=== PATIENT | male | born 1945 | race Caucasian/White ===

== ENCOUNTER 2017-12-12 01:33 | Emergency (ER) | payer MEDICARE, OTHER ==
[~2017-12-12] VITALS: Ht 188 cm; Wt 128.2 kg
[~2017-12-12 01:33] MED LIST: ATOR20TA PO; BENA20TA2 PO
[2017-12-12 02:42] VITALS: BP 146/57
== END 2017-12-12 02:43 | disposition home or self-care (01) ==
LOC: ER 01:34
DX: S63.502A Unspecified sprain of left wrist, initial encounter (principal); S00.81XA Abrasion of other part of head, initial encounter; M47.9 Spondylosis, unspecified; M81.0 Age-related osteoporosis without current pathological fracture; I10 Essential (primary) hypertension; Z98.890 Other specified postprocedural states; Z88.0 Allergy status to penicillin; Z88.2 Allergy status to sulfonamides; Z79.899 Other long term (current) drug therapy; W01.0XXA Fall on same level from slipping, tripping and stumbling without subsequent striking against object, initial encounter; Y93.89 Activity, other specified; Y92.89 Other specified places as the place of occurrence of the external cause; Y99.8 Other external cause status
CPT/HCPCS: 70450; 72125; 73130; 99284; L0172

== ENCOUNTER 2018-02-28 14:25 | Emergency (ER) | payer OTHER, MEDICARE ==
[~2018-02-28] VITALS: Ht 188 cm; Wt 128.6 kg
[~2018-02-28 14:25] MED LIST changes: -BENA20TA2 PO; +BENA20TA82 PO
[2018-02-28] MEDS ORDERED: CYCL-1 PO (16:36)
[2018-02-28 16:56] VITALS: BP 159/99
== END 2018-02-28 16:57 | disposition home or self-care (01) ==
LOC: ER 14:31
DX: S13.4XXA Sprain of ligaments of cervical spine, initial encounter (principal); I10 Essential (primary) hypertension; Z98.890 Other specified postprocedural states; Z95.0 Presence of cardiac pacemaker; Z88.0 Allergy status to penicillin; Z88.2 Allergy status to sulfonamides; Z79.899 Other long term (current) drug therapy; V49.88XA Car occupant (driver) (passenger) injured in other specified transport accidents, initial encounter; Y93.89 Activity, other specified; Y92.413 State road as the place of occurrence of the external cause; Y99.9 Unspecified external cause status
CPT/HCPCS: 72040; 99284; L0172

== ENCOUNTER 2018-09-01 10:07 | Emergency (ER) | payer MEDICARE, OTHER ==
[~2018-09-01] VITALS: Ht 188 cm; Wt 128.2 kg
[~2018-09-01 10:07] MED LIST changes: +CYCL-1 PO
[2018-09-01 10:19] VITALS: BP 155/65
== END 2018-09-01 11:38 | disposition home or self-care (01) ==
LOC: ER 10:07
DX: S61.215D Laceration without foreign body of left ring finger without damage to nail, subsequent encounter (principal); S61.217D Laceration without foreign body of left little finger without damage to nail, subsequent encounter; W45.8XXD Other foreign body or object entering through skin, subsequent encounter
CPT/HCPCS: 99281

== ENCOUNTER 2019-03-29 14:32 | Emergency (ER) | payer MEDICARE, OTHER ==
[~2019-03-29] VITALS: Ht 188 cm; Wt 128.2 kg
[2019-03-29 15:18] LABS: BASOPHILS % (AUTO) 0.7 % (0-1); EOSINOPHILS # (AUTO) 0.1 X10'3 (0-0.9); EOSINOPHILS % (AUTO) 2.3 % (0-6); HEMATOCRIT 42.3 % (42.0-52.0); HEMOGLOBIN 14.6 g/dl (14.0-17.9); LYMPHOCYTES # (AUTO) 1.2 X10'3 (1.1-4.8); LYMPHOCYTES % (AUTO) 18.3 % (21-51); MEAN CORPUSCULAR HEMOGLOBIN 31.7 PG (27.0-31.0); MEAN CORPUSCULAR HGB CONC 34.4 g/dL (33.0-36.5); MEAN PLATELET VOLUME 9.1 FL (7.4-10.4); MONOCYTES # (AUTO) 0.6 X10'3 (0-0.9); MONOCYTES % (AUTO) 9.8 % (2-12); NEUTROPHILS # (AUTO) 4.4 X10'3 (1.8-7.7); NEUTROPHILS % (AUTO) 68.9 % (42-75); PLATELET COUNT 188 X10'3 (140-440); RED CELL DISTRIBUTION WIDTH 13.8 % (11.5-14.5); WHITE BLOOD COUNT 6.3 X10'3 (4.5-11.0)
[2019-03-29 15:30] LABS: PARTIAL THROMBOPLASTIN TIME 34 SECONDS (22-32)
[2019-03-29 15:34] LABS: ALANINE AMINOTRANSFERASE 60 U/L (12-78); ALBUMIN 4.2 G/DL (3.4-5.0); ALBUMIN/GLOBULIN RATIO 1.2 (1.1-1.5); ALKALINE PHOSPHATASE 84 IU/L (46-116); ANION GAP 11 (8-16); ASPARTATE AMINO TRANSFERASE 45 U/L (10-37); BILIRUBIN,TOTAL 1.2 MG/DL (0.1-1.0); BLOOD UREA NITROGEN 17 MG/DL (7-18); BUN/CREATININE RATIO 15.6 (5.4-32.0); CALCIUM 9.6 MG/DL (8.5-10.1); CHLORIDE 107 MMOL/L (99-107); CREATININE 1.09 MG/DL (0.60-1.10); GLUCOSE 99 MG/DL (70-104); POTASSIUM 3.6 MMOL/L (3.5-5.1); SODIUM 142 MMOL/L (135-145); TOTAL CARBON DIOXIDE 24.5 MMOL/L (24-32); TOTAL PROTEIN 7.6 G/DL (6.4-8.2); eGFR 66 ML/MIN
--- NOTE | 2019-03-29 15:53 | NUR ---
PT CO LFT SHOULDER PAIN 03/14,DR FRANK OBSERVED THE ABRASION TO POSTERIOR LFT SHOULDER,PT CO LOWER BACK PAIN 04/13.PT DENIES TO TAKE ANY PAIN MEDS.TRAUMMA CALLED OFF BY DR FRANK.
[2019-03-29] MEDS ORDERED: ketorolac trometh. 30mg/ml inj. IV ONE (16:05)
[2019-03-29 18:09] VITALS: BP 163/86
== END 2019-03-29 18:10 | disposition home or self-care (01) ==
LOC: ER 14:33
DX: S30.0XXA Contusion of lower back and pelvis, initial encounter (principal); S40.212A Abrasion of left shoulder, initial encounter; I10 Essential (primary) hypertension; Z98.890 Other specified postprocedural states; Z95.0 Presence of cardiac pacemaker; Z88.0 Allergy status to penicillin; Z88.2 Allergy status to sulfonamides; Z79.899 Other long term (current) drug therapy; W18.39XA Other fall on same level, initial encounter; Y93.89 Activity, other specified; Y92.092 Bedroom in other non-institutional residence as the place of occurrence of the external cause; Y99.9 Unspecified external cause status
CPT/HCPCS: 36415; 71045; 72100; 73030; 80053; 84484; 85025; 85610; 85730; 93005; 96374; 99284; J1885

== ENCOUNTER 2019-11-15 09:07 | Day surgery (SDC) | payer MEDICARE, OTHER ==
[2019-11-14 11:27] LABS: EOSINOPHILS # (AUTO) 0.2 X10'3 (0-0.9); HEMOGLOBIN 14.6 g/dl (14.0-17.9); LYMPHOCYTES # (AUTO) 0.9 X10'3 (1.1-4.8); MONOCYTES # (AUTO) 0.4 X10'3 (0-0.9); NEUTROPHILS # (AUTO) 4.3 X10'3 (1.8-7.7); WHITE BLOOD COUNT 5.8 X10'3 (4.5-11.0)
[2019-11-14 11:29] LABS: BASOPHILS % (AUTO) 0.7 % (0-1); EOSINOPHILS % (AUTO) 3.2 % (0-6); HEMATOCRIT 42.6 % (42.0-52.0); LYMPHOCYTES % (AUTO) 15.6 % (21-51); MEAN CORPUSCULAR HEMOGLOBIN 31.5 PG (27.0-31.0); MEAN CORPUSCULAR HGB CONC 34.3 g/dL (33.0-36.5); MEAN CORPUSCULAR VOLUME 91.9 FL (78-98); NEUTROPHILS % (AUTO) 73.5 % (42-75); PLATELET COUNT 201 X10'3 (140-440); RED BLOOD COUNT 4.64 X10'6 (4.70-6.10)
[2019-11-14 11:39] LABS: ALBUMIN 4.2 G/DL (3.4-5.0); ANION GAP 9 (8-16); BLOOD UREA NITROGEN 18 MG/DL (7-18); CALCIUM 9.8 MG/DL (8.5-10.1); CHLORIDE 105 MMOL/L (99-107); CREATININE 1.06 MG/DL (0.60-1.10); GLUCOSE 112 MG/DL (70-104); POTASSIUM 4.1 MMOL/L (3.5-5.1); SODIUM 142 MMOL/L (135-145); TOTAL CARBON DIOXIDE 28.3 MMOL/L (24-32); eGFR 68 ML/MIN
[2019-11-14 12:13] LABS: PARTIAL THROMBOPLASTIN TIME 27 SECONDS (22-32)
[2019-11-15] VITALS (11 sets, daily range): BP systolic 101–162; BP diastolic 52–74
[~2019-11-15] VITALS: Ht 188 cm; Wt 132.3 kg
[2019-11-15] MEDS ORDERED: LORazepam 0.5 MG tablet PO PRN (09:20)
[2019-11-15] MEDS ORDERED: normal saline 1,000 ML IV SCH (09:20)
[2019-11-15] MEDS ORDERED: diphenhydrAMINE 25mg capsule PO PRN (09:20)
[2019-11-15] MEDS ORDERED: LIDOcaine/PRILOcaine 5gm cream TP ONE (10:25)
[2019-11-15] MEDS ORDERED: PSYL3.4P5 PO (12:32)
[2019-11-15] MEDS ORDERED: DABI150C PO (12:32)
[2019-11-15] MEDS ORDERED: CARV6.253 PO (12:32)
[2019-11-15] MEDS ORDERED: LACT1CAP65 PO (12:32)
[2019-11-15] MEDS ORDERED: LEVO25TA7 PO (12:32)
[2019-11-15] MEDS ORDERED: MULT1CAP34 PO (12:32)
[2019-11-15] MEDS ORDERED: ASPI-10 PO (12:32)
[2019-11-15] MEDS ORDERED: OMEG-133 PO (12:32)
[2019-11-15] MEDS ORDERED: AMLO10TA PO (12:32)
[2019-11-15] MEDS ORDERED: nitroGLYCERIN-Tridil 50MG/D5W 250 ML IV ONE (13:40)
[2019-11-15] MEDS ORDERED: fentaNYL/PF 50MCG/1 ML 2ML syringe ONE (13:41)
[2019-11-15] MEDS ORDERED: heparin 1,000unit/ml 10ml vial 10 ML ONE (13:41)
[2019-11-15] MEDS ORDERED: midazolam 2 mg/2 ml injection ONE (13:41)
[2019-11-15] MEDS ORDERED: LIDOcaine 1% (10mg/ml)w/preservative injection 20ml MDV ONE (13:41)
[2019-11-15] MEDS ORDERED: iohexol 350MG/ML 100ml bottle IV ONE (13:42)
[2019-11-15] MEDS ORDERED: iohexol 350 MG/ML 50ML vial IV ONE ×2 (13:42→14:42)
[2019-11-15] MEDS ORDERED: verapamil 2.5 mg/ml inj IV ONE (13:51)
[2019-11-15] MEDS ORDERED: normal saline 1000ml 1,000 ML IV SCH (15:40)
--- NOTE | 2019-11-15 15:48 | NUR ---
Notified spouse of current patient status and of discharge time. 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 Addendum: 11/15/19 at 1549 by Sergo Dunbar RN Amended: Links added.
[2019-11-15 16:31] LABS: ISTAT HGB ART 12.6 g/dl (14.0-18.0); ISTAT Hct ART 37 %PCV (42-52); ISTAT O2 SATURATION ARTERIAL 91 % (95-98); ISTAT SOURCE ART
[2019-11-15 16:31] LABS: ISTAT Hct MIX 36 %PCV (42-52); ISTAT O2 SATURATION MIX VENOUS 70 % (60-80); ISTAT SOURCE MIX
== END 2019-11-15 19:50 | disposition home or self-care (01) ==
LOC: SSTAY O 09:07
PROVIDERS: ATTEND Internal Medicine Cardiovascular Disease
DX: R94.39 Abnormal result of other cardiovascular function study (principal); I25.10 Atherosclerotic heart disease of native coronary artery without angina pectoris; I10 Essential (primary) hypertension; E78.5 Hyperlipidemia, unspecified; I49.5 Sick sinus syndrome; I48.0 Paroxysmal atrial fibrillation; G47.30 Sleep apnea, unspecified; I08.0 Rheumatic disorders of both mitral and aortic valves; M19.90 Unspecified osteoarthritis, unspecified site; Z79.899 Other long term (current) drug therapy; Z79.82 Long term (current) use of aspirin; Z88.2 Allergy status to sulfonamides; Z88.0 Allergy status to penicillin; Z96.652 Presence of left artificial knee joint; Z95.0 Presence of cardiac pacemaker
CPT/HCPCS: 36415; 80048; 82803; 85014; 85025; 85610; 85730; 93005; 93460; 99152; 99153; C1769; C1894; J1644; J2001; J2250; J3010; J7030; Q0163; Q9967; A4620; A5120; A6258; J3490

== ENCOUNTER 2022-08-15 17:44 | Inpatient (IN) | payer OTHER, MEDICARE ==
[~2022-08-15] VITALS: Ht 188 cm; Wt 119.1 kg
[~2022-08-15 17:44] MED LIST changes: +AMLO10TA PO; +ASPI-10 PO; +CARV6.253 PO; -CYCL-1 PO; +DABI150C PO; +LACT1CAP65 PO; +LEVO25TA7 PO; +MULT1CAP34 PO; +OMEG-133 PO; +PSYL3.4P5 PO
[2022-08-15 18:22] LABS: BASOPHILS % (AUTO) 0.3 % (0-1); EOSINOPHILS # (AUTO) 0.1 X10'3 (0-0.9); HEMATOCRIT 40.2 % (42.0-52.0); HEMOGLOBIN 13.4 g/dl (14.0-17.9); LYMPHOCYTES # (AUTO) 0.6 X10'3 (1.1-4.8); LYMPHOCYTES % (AUTO) 5.4 % (21-51); MEAN CORPUSCULAR HGB CONC 33.4 g/dL (33.0-36.5); MEAN PLATELET VOLUME 9.8 FL (7.4-10.4); MONOCYTES # (AUTO) 0.7 X10'3 (0-0.9); MONOCYTES % (AUTO) 6.7 % (2-12); NEUTROPHILS # (AUTO) 9.2 X10'3 (1.8-7.7); NEUTROPHILS % (AUTO) 86.6 % (42-75); PLATELET COUNT 185 X10'3 (140-440); RED BLOOD COUNT 4.32 X10'6 (4.70-6.10); RED CELL DISTRIBUTION WIDTH 14.3 % (11.5-14.5); WHITE BLOOD COUNT 10.6 X10'3 (4.5-11.0)
[2022-08-15 18:52] LABS: D-DIMER 0.51 MG/L FEU (0-0.50)
[2022-08-15 18:55] LABS: ALANINE AMINOTRANSFERASE 27 U/L (12-78); ALBUMIN/GLOBULIN RATIO 1.2 (1.1-1.5); ALKALINE PHOSPHATASE 143 IU/L (46-116); ANION GAP 13 (8-16); ASPARTATE AMINO TRANSFERASE 24 U/L (10-37); BILIRUBIN,TOTAL 1.6 MG/DL (0.1-1.0); BLOOD UREA NITROGEN 22 MG/DL (7-18); CALCIUM 9.3 MG/DL (8.5-10.1); CHLORIDE 103 MMOL/L (99-107); GLUCOSE 101 MG/DL (70-104); POTASSIUM 3.3 MMOL/L (3.5-5.1); SODIUM 139 MMOL/L (135-145); TOTAL CARBON DIOXIDE 23.2 MMOL/L (24-32); TOTAL PROTEIN 7.4 G/DL (6.4-8.2); eGFR 72 ML/MIN
[2022-08-15 19:03] LABS: MAGNESIUM 2.3 MG/DL (1.5-2.4)
[2022-08-15] MEDS ORDERED: nitroGLYCERIN 0.4mg SUBLingual tab SL PRN ×2 (19:30→21:00)
[2022-08-15] MEDS ORDERED: potassium Cl 40MEQ/1/2NS 520ml 520 ML IV PRN (21:00)
[2022-08-15] MEDS ORDERED: regadenoson 0.4mg/5ml syringe IV PRN (21:00)
[2022-08-15] MEDS ORDERED: temazepam 15mg capsule PO PRN (21:00)
[2022-08-15] MEDS ORDERED: acetaminophen 325mg tablet PO PRN ×2 (21:00)
[2022-08-15] MEDS ORDERED: magnesium 4gm in 100ml NS 100 ML IV PRN (21:00)
[2022-08-15] MEDS ORDERED: magnesium Cl slow-release 64mg tablet PO PRN (21:00)
[2022-08-15] MEDS ORDERED: mag hydrox/Alum hydrox/simeth 30ml oral suspension PO PRN (21:00)
[2022-08-15] MEDS ORDERED: morphine 2 MG/ML inj. syringe IV PRN ×2 (21:00)
[2022-08-15] MEDS ORDERED: HYDROcodone/acetaminophen 10/325mg tab PO PRN (21:00)
[2022-08-15] MEDS ORDERED: aminophylline 250mg/10ml inj. IV PRN (21:00)
[2022-08-15] MEDS ORDERED: potassium Cl 20 mEq SR tablet PO PRN ×2 (21:00)
[2022-08-15] MEDS: normal saline 1000ml 1,000 ML IV SCH (21:00)
[2022-08-15] MEDS ORDERED: magnesium hydroxide 30ml (MOM) UD suspension PO PRN (21:00)
[2022-08-15] MEDS ORDERED: metoprolol tartrate 1mg/ml inj IV PRN (21:00)
[2022-08-15] MEDS ORDERED: ondansetron/PF 4mg/2ml inj IV PRN (21:00)
[2022-08-15] MEDS ORDERED: HYDROcodone/acetaminophen 5mg/325mg tablet PO PRN (21:00)
[2022-08-16] VITALS (10 sets, daily range): BP systolic 106–132; BP diastolic 46–68
[2022-08-16] MEDS ORDERED: VITA-268 PO (01:15)
[2022-08-16] MEDS ORDERED: LISI40TA13 PO (01:15)
[2022-08-16] MEDS ORDERED: POTA-82 PO (01:15)
[2022-08-16] MEDS ORDERED: CHOL100046 PO (01:15)
--- NOTE | 2022-08-16 01:39 | NUR ---
Patient arrived to the tele at 0119 via gurney. Patient is laet and oriented times 4. Patient denies pain. Educated this patient how to use the call light, patient verbalized an understanding. Tele box number [id number] placed on patient. Call light within reach and all personal belongings within reach
--- NOTE | 2022-08-16 01:43 | NUR ---
Patient alert and oriented times 4
--- NOTE | 2022-08-16 04:07 | NUR ---
spoke to Dr. Dickerson to make aware that this patient lactic acid lab that was liliana in the ER is elevated, she gave an order to repeat lactic acid in the AM. This nurse also ask if it was ok to give potassium po per protocol being that patient is NPO. Dr. iDckerson stated it is ok to give the patient PO potassium; telephone repeat back given
--- NOTE | 2022-08-16 05:59 | NUR ---
Patient in bed with the head of the bed in a semi-fowlers position. Patient has no signs or symptoms within reach. Call light within reach and all personal belongings within reach
[2022-08-16 06:09] LABS: BASOPHILS % (AUTO) 0.4 % (0-1); EOSINOPHILS % (AUTO) 0.3 % (0-6); HEMATOCRIT 37.8 % (42.0-52.0); HEMOGLOBIN 13.1 g/dl (14.0-17.9); LYMPHOCYTES # (AUTO) 0.9 X10'3 (1.1-4.8); LYMPHOCYTES % (AUTO) 10.4 % (21-51); MEAN CORPUSCULAR HEMOGLOBIN 31.8 PG (27.0-31.0); MEAN CORPUSCULAR HGB CONC 34.6 g/dL (33.0-36.5); MEAN PLATELET VOLUME 9.5 FL (7.4-10.4); MONOCYTES # (AUTO) 0.9 X10'3 (0-0.9); MONOCYTES % (AUTO) 10.4 % (2-12); NEUTROPHILS % (AUTO) 78.5 % (42-75); PLATELET COUNT 163 X10'3 (140-440); RED CELL DISTRIBUTION WIDTH 14.6 % (11.5-14.5); WHITE BLOOD COUNT 8.9 X10'3 (4.5-11.0)
[2022-08-16 06:31] LABS: GLUCOSE 107 MG/DL (70-104); SODIUM 138 MMOL/L (135-145)
[2022-08-16 06:32] LABS: ALANINE AMINOTRANSFERASE 23 U/L (12-78); ALBUMIN 3.7 G/DL (3.4-5.0); ALBUMIN/GLOBULIN RATIO 1.1 (1.1-1.5); ALKALINE PHOSPHATASE 127 IU/L (46-116); ANION GAP 11 (8-16); ASPARTATE AMINO TRANSFERASE 20 U/L (10-37); BILIRUBIN,TOTAL 2.6 MG/DL (0.1-1.0); BLOOD UREA NITROGEN 23 MG/DL (7-18); BUN/CREATININE RATIO 25.6 (5.4-32.0); CALCIUM 9.1 MG/DL (8.5-10.1); CHLORIDE 103 MMOL/L (99-107); POTASSIUM 3.3 MMOL/L (3.5-5.1); eGFR 82 ML/MIN
--- NOTE | 2022-08-16 06:35 | NUR ---
Patient in room PCU 3025. I have received report from sandra gomez and had the opportunity to ask questions and assume patient care.
[2022-08-16] MEDS ORDERED: docusate sod 100mg capsule PO SCH (08:00)
[2022-08-16] MEDS ORDERED: amLODIPine 5mg tablet PO SCH (08:00)
[2022-08-16] MEDS ORDERED: levoTHYROXINE 25mcg tablet PO SCH (08:00)
[2022-08-16] MEDS ORDERED: lisinopril 20mg tablet PO SCH (08:00)
[2022-08-16] MEDS ORDERED: potassium Cl 20 mEq SR tablet PO SCH ×2 (08:00)
[2022-08-16] MEDS ORDERED: lactobacillus rhamnosus 10,000 MMU CELLS/CAPSULE PO SCH (08:00)
[2022-08-16] MEDS ORDERED: carvedilol 6.25mg tablet PO SCH (08:00)
[2022-08-16] MEDS ORDERED: dabigatran 150mg capsule PO SCH (08:00)
[2022-08-16] MEDS ORDERED: heparin, porcine 5000 units/ml vial SQ SCH (08:00)
[2022-08-16 08:42] LABS: CHOLESTEROL 89 MG/DL (0-200)
[2022-08-16 08:43] LABS: HDL CHOLESTEROL 45 MG/DL (35-60); LDL CHOLESTEROL 36 MG/DL (50-100); TRIGLYCERIDES 73 MG/DL (20-135)
--- NOTE | 2022-08-16 11:06 | NUR ---
waiting to give pt heart medication per [facility] scan, stated he can have when he gets back will take pts bp and reassess when he arrives.
[2022-08-16] MEDS: normal saline 1000ml 1,000 ML IV SCH (11:18)
[2022-08-16] MEDS ORDERED: NAPR-1170 PO (12:04)
[2022-08-16] MEDS ORDERED: NITR0.4T51 SL (12:04)
--- NOTE | 2022-08-16 12:13 | NUR ---
PAGER ID: [phone] MESSAGE: [email or web address], CAN YOU PLACE "ROUTINE DISCHARGE" ORDER FOR 3025B, THANK YOU
--- NOTE | 2022-08-16 12:48 | NUR ---
Page Sent PAGER ID: [phone] MESSAGE: [phone] b halina alexander family is here and is concerned about him going home would like to get results and talk to you. desiree
--- NOTE | 2022-08-16 14:31 | NUR ---
pt is stable for dc, all belongings taken with pt, all dc info gone over, pt iv was dc and cannula intact, i gave pt the script for his medications per the dr, pt left in a wheelchair and in a private vehicle with family.
[2022-08-16] MEDS ORDERED: atorvastatin 20mg tablet PO SCH (21:00)
[2022-08-22] MEDS ORDERED: GABA-530 PO (22:52)
[2022-08-22] MEDS ORDERED: POTA-207 PO (22:52)
[2022-08-22] MEDS ORDERED: FURO-149 PO (22:52)
[2022-08-25] MEDS ORDERED: LACT1CAP55 PO (12:47)
[2022-08-25] MEDS ORDERED: PANT40TA54 PO (12:47)
[2022-08-25] MEDS ORDERED: FLO0.4C PO (12:47)
[2022-08-25] MEDS ORDERED: CEPH250T PO (12:47)
== END 2022-08-16 14:27 | disposition home or self-care (01) | DRG 313 ==
LOC: ER 17:45 → ED HOLD 21:03 → PCU 3S 08-16 01:34
PROVIDERS: ADMIT Internal Medicine; ATTEND Family Medicine
PROC: 4A02XM4 Measurement of Cardiac Total Activity, External Approach (ICD-10-PCS; principal; 2022-08-16)
PROC: 3E033HZ Introduction of Radioactive Substance into Peripheral Vein, Percutaneous Approach (ICD-10-PCS; 2022-08-16)
DX: R07.9 Chest pain, unspecified (principal); I24.9 Acute ischemic heart disease, unspecified; E03.9 Hypothyroidism, unspecified; I10 Essential (primary) hypertension; I25.10 Atherosclerotic heart disease of native coronary artery without angina pectoris; M17.0 Bilateral primary osteoarthritis of knee; Z95.0 Presence of cardiac pacemaker; Z88.0 Allergy status to penicillin; Z88.2 Allergy status to sulfonamides
CPT/HCPCS: 36415; 71045; 78452; 80053; 80061; 83605; 83735; 83880; 84484; 85025; 85379; 85610; 87040; 87081; 93005; 93017; 99285; A9500; G0378; J1644; J2785; J7030

== ENCOUNTER 2022-09-08 13:24 | Outpatient (CLI) | payer MEDICARE, OTHER ==
[~2022-09-08 13:24] MED LIST changes: -ASPI-10 PO; -BENA20TA82 PO; +CEPH250T PO; -DABI150C PO; +FLO0.4C PO; +FURO-149 PO; +GABA-530 PO; +LACT1CAP55 PO; -LACT1CAP65 PO; +LISI40TA13 PO; -MULT1CAP34 PO; -OMEG-133 PO; +PANT40TA54 PO; +POTA-207 PO; -PSYL3.4P5 PO; +iohexol 300 MG/1 ML 50ml polymer ONE; +iohexol 350MG/ML 100ml bottle IV ONE
== END 2022-09-08 23:59 | disposition home or self-care (01) ==
LOC: RAD 13:24
PROVIDERS: ATTEND Internal Medicine Cardiovascular Disease
DX: I08.8 Other rheumatic multiple valve diseases (principal)
CPT/HCPCS: 93306; J7030; Q9967

== ENCOUNTER 2023-06-01 06:16 | Day surgery (SDC) | payer MEDICARE, OTHER ==
[2023-05-31 16:49] LABS: BASOPHILS % (AUTO) 0.7 % (0-1); EOSINOPHILS # (AUTO) 0.2 X10'3 (0-0.9); EOSINOPHILS % (AUTO) 2.8 % (0-6); HEMATOCRIT 41.4 % (42.0-52.0); HEMOGLOBIN 14.1 g/dl (14.0-17.9); LYMPHOCYTES # (AUTO) 0.9 X10'3 (1.1-4.8); MEAN CORPUSCULAR HEMOGLOBIN 32.3 PG (27.0-31.0); MEAN CORPUSCULAR HGB CONC 34.1 g/dL (33.0-36.5); MEAN CORPUSCULAR VOLUME 94.7 FL (78-98); MEAN PLATELET VOLUME 9.6 FL (7.4-10.4); MONOCYTES # (AUTO) 0.6 X10'3 (0-0.9); MONOCYTES % (AUTO) 9.3 % (2-12); NEUTROPHILS % (AUTO) 74.2 % (42-75); PLATELET COUNT 201 X10'3 (140-440); RED BLOOD COUNT 4.37 X10'6 (4.70-6.10); RED CELL DISTRIBUTION WIDTH 14.4 % (11.5-14.5); WHITE BLOOD COUNT 6.8 X10'3 (4.5-11.0)
[2023-05-31 16:56] LABS: ALBUMIN 4.2 G/DL (3.4-5.0); ANION GAP 11 (8-16); BLOOD UREA NITROGEN 31 MG/DL (7-18); BUN/CREATININE RATIO 27.2 (10.0-20.0); CALCIUM 9.7 MG/DL (8.5-10.1); CHLORIDE 106 MMOL/L (99-107); CREATININE 1.14 MG/DL (0.60-1.10); GLUCOSE 83 MG/DL (70-104); POTASSIUM 4.2 MMOL/L (3.5-5.1); SODIUM 143 MMOL/L (135-145); TOTAL CARBON DIOXIDE 25.9 MMOL/L (24-32); eGFR 62 ML/MIN
[2023-05-31 17:22] LABS: APTT 34 SECONDS (22-32)
[2023-05-31 17:24] LABS: PROTHROMBIN TIME 11.2 SECONDS (9.0-12.0)
[~2023-06-01] VITALS: Ht 188 cm; Wt 124.7 kg
[2023-06-01] VITALS (11 sets, daily range): BP systolic 121–137; BP diastolic 53–71; PULSE 70–80; RESP 14–18; TEMP 98.1; O2SAT 94–97
[~2023-06-01 06:16] MED LIST changes: -FLO0.4C PO; -iohexol 300 MG/1 ML 50ml polymer ONE; -iohexol 350MG/ML 100ml bottle IV ONE
[2023-06-01] MEDS ORDERED: clindamycin-Cleocin 900mg/D5W 50 ML IV ONE (06:29)
[2023-06-01] MEDS ORDERED: normal saline 1000ml 1,000 ML IV SCH (06:29)
[2023-06-01] MEDS ORDERED: ASPI81TA52 PO (06:50)
[2023-06-01] MEDS ORDERED: SACU1TAB PO (06:50)
[2023-06-01] MEDS ORDERED: GABA-530 PO (07:28)
[2023-06-01] MEDS ORDERED: LISI40TA13 PO (07:28)
[2023-06-01] MEDS ORDERED: LIDOcaine 1% W/epiNEPHrine 1:100,000 20ml vial ONE ×2 (07:33→08:27)
[2023-06-01] MEDS ORDERED: fentaNYL/PF 50MCG/1 ML 2ML syringe ONE (07:33)
[2023-06-01] MEDS ORDERED: midazolam 1 mg/ML 2ml injection ONE (07:33)
[2023-06-01] MEDS ORDERED: APIX5TAB3 PO (07:43)
[2023-06-01] MEDS ORDERED: vancomycin 1,000mg inj ONE (08:22)
[2023-06-01] MEDS ORDERED: DABI150C PO (08:31)
[2023-06-01] MEDS ORDERED: vancomycin/NS 1 GM ADD-VANTAGE 250 ML IV ONE (10:00)
== END 2023-06-01 12:00 | disposition home or self-care (01) ==
LOC: SSTAY O 06:16
PROVIDERS: ATTEND Internal Medicine Cardiovascular Disease
DX: Z45.010 Encounter for checking and testing of cardiac pacemaker pulse generator [battery] (principal); I25.10 Atherosclerotic heart disease of native coronary artery without angina pectoris; I48.0 Paroxysmal atrial fibrillation; I08.3 Combined rheumatic disorders of mitral, aortic and tricuspid valves; I49.5 Sick sinus syndrome; E78.5 Hyperlipidemia, unspecified; M19.90 Unspecified osteoarthritis, unspecified site; I11.0 Hypertensive heart disease with heart failure; I50.22 Chronic systolic (congestive) heart failure; G47.30 Sleep apnea, unspecified; Z79.899 Other long term (current) drug therapy; Z96.652 Presence of left artificial knee joint; Z98.890 Other specified postprocedural states; Z88.2 Allergy status to sulfonamides; Z88.0 Allergy status to penicillin
CPT/HCPCS: 33228; 36415; 80048; 85025; 85610; 85730; 93005; 99152; 99153; C1785; J2250; J3010; J3370; J3490; J7030; A6449

== ENCOUNTER 2023-07-31 13:29 | Emergency (ER) | payer OTHER, MEDICARE ==
[~2023-07-31] VITALS: Ht 188 cm; Wt 107.0 kg
[~2023-07-31 13:29] MED LIST changes: +ASCO-134 PO; +BACL10TA2 PO; -CEPH250T PO; +DABI150C PO; -FURO-149 PO; +FURO-150 PO; -GABA-530 PO; +GABA300C PO; +IPRA3AMP31 NEB; -LACT1CAP55 PO; +LORA10TA7 PO; +MULT-1085 PO; +OMEP40CA21 PO; -PANT40TA54 PO; +SPIR25TA5 PO
[2023-07-31 13:58] VITALS: BP 60/29; PULSE 80; TEMP 96.9; O2SAT 99
[2023-07-31] MEDS ORDERED: morphine 10mg/0.5ml (conc. morphine) oral syringe PO PRN (22:30)
[2023-07-31] MEDS ORDERED: acetaminophen 325mg tablet PO PRN (22:30)
[2023-07-31] MEDS ORDERED: LORazepam 2 mg/ml vial IV PRN (22:30)
[2023-07-31] MEDS ORDERED: morphine 10mg/ml inj. IV PRN (22:30)
[2023-08-01 04:11] VITALS: RESP 23
== END 2023-08-01 17:25 | disposition hospice, inpatient (51) ==
LOC: ER 13:30
DX: R41.82 Altered mental status, unspecified (principal); I13.2 Hypertensive heart and chronic kidney disease with heart failure and with stage 5 chronic kidney disease, or end stage renal disease; E13.22 Other specified diabetes mellitus with diabetic chronic kidney disease; N18.6 End stage renal disease; I50.89 Other heart failure
CPT/HCPCS: 96374; 99285; J2274; J7030